=== PATIENT | female | born 1950 | race African-American/Black ===

== ENCOUNTER 2020-08-08 17:45 | Emergency (ER) | payer MEDICARE, MEDICAID ==
[~2020-08-08] VITALS: Ht 167.6 cm; Wt 68.9 kg
[2020-08-08 19:18] LABS: Basophils # (auto) 0 10 ^3/uL (0-0.2); Basophils % (auto) 0.7 % (0.0-2.0); Eosinophils # (auto) 0 10 ^3/uL (0-0.8); Hematocrit 38.6 % (36.0-46.0); Hemoglobin 13.3 g/dL (12.2-16.2); Lymphocytes # (auto) 1.4 10 ^3/uL (0.4-5.4); Lymphocytes % (auto) 27.5 % (10.0-50.0); Mean Corpuscular Hemoglobin 32.7 pg (28.0-32.0); Mean Corpuscular Hgb Conc. 34.4 g/dL (32.0-36.0); Mean Corpuscular Volume 95.1 fL (80.0-100.0); Monocytes # (auto) 0.4 10 ^3/uL (0-1.3); Monocytes % (auto) 6.8 % (0.0-12.0); Neutrophils # (auto) 3.3 10 ^3/uL (1.6-8.6); Nucleated Red Blood Cells % 0.1 %; Platelet Count (auto) 216 10^3/uL (140-450); Red Blood Cells 4.06 10^6/uL (4.0-5.20); Red Cell Distribution Width 13.4 % (11.8-14.3); White Blood Cell 5.2 10^3/uL (4.4-10.8)
[2020-08-08 19:32] LABS: Albumin 3.5 g/dL (3.4-5.0); Anion Gap 7 (5-15); Blood Urea Nitrogen 16 mg/dL (7-18); Carbon Dioxide 25 mmol/L (21-32); Chloride 107 mmol/L (98-107); Glucose 134 mg/dL (74-106); Magnesium 2.4 mg/dL (1.6-2.6); Potassium 3.9 mmol/L (3.5-5.1); Sodium 139 mmol/L (136-145)
[2020-08-08 19:38] LABS: Alanine Aminotransferase 26 U/L (13-56); Alkaline Phosphatase 102 U/L (45-117); Aspartate Aminotransferase 20 U/L (15-37); BUN/Creatinine Ratio 17.4; Bilirubin, Total 0.2 mg/dL (0.2-1.0); GFR African American 78 mL/min; GFR Non-African American 64 mL/min; Total Protein 7.5 g/dL (6.4-8.2)
[2020-08-09 06:20] VITALS: BP 135/68
== END 2020-08-09 07:28 | disposition home or self-care (01) ==
LOC: ER 17:45 → EDBD 17:45 → ER 08-09 07:28
DX: G25.0 Essential tremor (principal); T42.6X5A Adverse effect of other antiepileptic and sedative-hypnotic drugs, initial encounter; M25.551 Pain in right hip; M25.552 Pain in left hip; M79.7 Fibromyalgia; Z86.73 Personal history of transient ischemic attack (TIA), and cerebral infarction without residual deficits; Z88.1 Allergy status to other antibiotic agents; Z91.040 Latex allergy status; Z88.0 Allergy status to penicillin; Z88.2 Allergy status to sulfonamides; Z88.8 Allergy status to other drugs, medicaments and biological substances; Y92.89 Other specified places as the place of occurrence of the external cause
CPT/HCPCS: 36415; 70450; 71045; 80053; 83605; 83735; 83880; 84484; 85025; 93005

== ENCOUNTER 2021-02-20 14:00 | Inpatient (IN) | payer MEDICARE, MEDICAID ==
[~2021-02-20] VITALS: Ht 162.6 cm; Wt 72.3 kg
[2021-02-20] MEDS ORDERED: cloNIDine HCL 0.1 MG TAB PO ONE (14:15)
[2021-02-20] MEDS ORDERED: cloNIDine HCL 0.1 MG TAB ONE (14:20)
[2021-02-20 14:49] LABS: Basophils # (auto) 0 10 ^3/uL (0-0.2); Basophils % (auto) 0.6 % (0.0-2.0); Eosinophils # (auto) 0 10 ^3/uL (0-0.8); Eosinophils % (auto) 0.1 % (0.0-7.0); Hematocrit 45.3 % (36.0-46.0); Hemoglobin 15.5 g/dL (12.2-16.2); Lymphocytes # (auto) 2.1 10 ^3/uL (0.4-5.4); Lymphocytes % (auto) 28.3 % (10.0-50.0); Mean Corpuscular Hemoglobin 32.2 pg (28.0-32.0); Mean Corpuscular Hgb Conc. 34.2 g/dL (32.0-36.0); Mean Corpuscular Volume 94.3 fL (80.0-100.0); Monocytes # (auto) 0.6 10 ^3/uL (0-1.3); Monocytes % (auto) 8.6 % (0.0-12.0); Neutrophils # (auto) 4.7 10 ^3/uL (1.6-8.6); Neutrophils % (auto) 62.4 % (37.0-80.0); Red Blood Cells 4.81 10^6/uL (4.0-5.20); Red Cell Distribution Width 13.4 % (11.8-14.3); White Blood Cell 7.5 10^3/uL (4.4-10.8)
[2021-02-20 15:17] LABS: Alanine Aminotransferase 27 U/L (13-56); Albumin 3.7 g/dL (3.4-5.0); Anion Gap 13 (5-15); Aspartate Aminotransferase 31 U/L (15-37); Blood Urea Nitrogen 15 mg/dL (7-18); Calcium 9.2 mg/dL (8.5-10.1); Carbon Dioxide 24 mmol/L (21-32); Chloride 104 mmol/L (98-107); GFR African American 98 mL/min; GFR Non-African American 81 mL/min; Glucose 103 mg/dL (74-106); Potassium 3.8 mmol/L (3.5-5.1); Sodium 141 mmol/L (136-145)
[2021-02-20 15:20] LABS: Alkaline Phosphatase 113 U/L (45-117); Bilirubin, Total 0.6 mg/dL (0.2-1.0)
[2021-02-20] MEDS ORDERED: MORPHINE SULFATE INJECTION 2 MG/ML SYRG IV PRN (23:45)
[2021-02-21 01:42] LABS: Amphetamine Screen, Urine NEGATIVE (NEGATIVE); Barbiturate Scree,Urine NEGATIVE (NEGATIVE); Benzodiazephine Screen, Urine NEGATIVE (NEGATIVE); Cannabinoid Screen, Urine NEGATIVE (NEGATIVE); Cocaine Screen, Urine NEGATIVE (NEGATIVE); Opiate Scree,Urine POSITIVE (NEGATIVE); Phencyclidine Screen, Urine NEGATIVE (NEGATIVE)
[2021-02-21 01:44] LABS: Urine Bacteria NONE SEEN /hpf (None Seen); Urine Blood Negative /uL (Negative); Urine Hyaline Cast FEW /lpf (0 - 2); Urine Mucus FEW (None Seen); Urine Specific Gravity 1.018 (1.001-1.035); Urine WBC 131 /hpf (0 - 5)
[2021-02-21] MEDS: SODIUM CHLORIDE 0.9% 1,000 ML IV SCH ×2 (04:55→18:35)
[2021-02-21] MEDS ORDERED: LORazepam 2MG/ML-1ML VIAL ONE (05:09)
[2021-02-21] MEDS ORDERED: HALOPERIDOL LACTATE 5 MG/ML INJ VIAL ONE ×2 (05:10)
[2021-02-21] MEDS ORDERED: LORazepam 2MG/ML-1ML VIAL IV ONE ×2 (05:15→05:30)
[2021-02-21] MEDS ORDERED: HALOPERIDOL LACTATE 5 MG/ML INJ VIAL IM ONE (05:30)
[2021-02-21 10:19] LABS: Basophils # (auto) 0 10 ^3/uL (0-0.2); Basophils % (auto) 0.5 % (0.0-2.0); Eosinophils # (auto) 0 10 ^3/uL (0-0.8); Eosinophils % (auto) 0.1 % (0.0-7.0); Hematocrit 40.6 % (36.0-46.0); Hemoglobin 13.5 g/dL (12.2-16.2); Lymphocytes # (auto) 2.8 10 ^3/uL (0.4-5.4); Lymphocytes % (auto) 29.9 % (10.0-50.0); Mean Corpuscular Hemoglobin 31.2 pg (28.0-32.0); Mean Corpuscular Hgb Conc. 33.2 g/dL (32.0-36.0); Mean Corpuscular Volume 93.9 fL (80.0-100.0); Monocytes # (auto) 1.1 10 ^3/uL (0-1.3); Monocytes % (auto) 12.3 % (0.0-12.0); Neutrophils # (auto) 5.3 10 ^3/uL (1.6-8.6); Neutrophils % (auto) 57.2 % (37.0-80.0); Nucleated Red Blood Cells % 0.1 %; Red Blood Cells 4.33 10^6/uL (4.0-5.20); Red Cell Distribution Width 13.2 % (11.8-14.3); White Blood Cell 9.3 10^3/uL (4.4-10.8)
[2021-02-21 10:58] LABS: Calcium 8.3 mg/dL (8.5-10.1)
[2021-02-21] MEDS: ENOXAPARIN SOD 40 MG/0.4 ML SYRINGE SC SCH (11:00)
[2021-02-21] MEDS: ZINC SULFATE 220mg CAP or TAB PO SCH (11:00)
[2021-02-21 11:02] LABS: BUN/Creatinine Ratio 29.1; Bilirubin, Total 0.5 mg/dL (0.2-1.0); Total Protein 6.7 g/dL (6.4-8.2)
[2021-02-21] MEDS: MULTIPLE VITAMIN TAB PO SCH (11:16)
[2021-02-21] MEDS: ASCORBIC ACID 500 MG TAB PO SCH ×2 (11:16→21:44)
[2021-02-21] MEDS: MORPHINE SULFATE 4 MG/ML SYR/VIAL IV PRN (15:45)
[2021-02-21] MEDS: ONDANSETRON HCL 4 MG/2 ML VIAL IV PRN (15:50)
[2021-02-21] MEDS ORDERED: levoFLOXacin 500MG 100 ML IV ONE (16:00)
[2021-02-21 18:38] VITALS: BP 124/67
[2021-02-21 22:25] VITALS: BP 118/68
[2021-02-22] VITALS (7 sets, daily range): BP systolic 120–138; BP diastolic 61–76
[2021-02-22] MEDS: ONDANSETRON HCL 4 MG/2 ML VIAL IV PRN (08:23)
[2021-02-22] MEDS: MORPHINE SULFATE 4 MG/ML SYR/VIAL IV PRN ×2 (08:27→22:10)
[2021-02-22] MEDS: ENOXAPARIN SOD 40 MG/0.4 ML SYRINGE SC SCH (10:56)
[2021-02-22] MEDS: HYDROcodone-ACET 5/325MG TAB PO PRN (10:56)
[2021-02-22] MEDS: MULTIPLE VITAMIN TAB PO SCH (10:56)
[2021-02-22] MEDS: DOCUSATE SOD 100 MG CAP PO PRN (10:56)
[2021-02-22] MEDS: ASCORBIC ACID 500 MG TAB PO SCH ×2 (10:56→22:09)
[2021-02-22] MEDS: SODIUM CHLORIDE 0.9% 1,000 ML IV SCH (10:57)
[2021-02-22] MEDS: levoFLOXacin 500MG 100 ML IV SCH (10:57)
[2021-02-22] MEDS: ZINC SULFATE 220mg CAP or TAB PO SCH (10:57)
[2021-02-22] MEDS ORDERED: POTASSIUM CHL 20 Meq TABLET PO ONE (19:45)
[2021-02-22] MEDS: ATORVASTATIN 20 MG TAB PO SCH (22:09)
[2021-02-22] MEDS: APIXABAN 5 MG TAB PO SCH (22:09)
[2021-02-23] VITALS (7 sets, daily range): BP systolic 122–136; BP diastolic 73–81
[2021-02-23] MEDS: SODIUM CHLORIDE 0.9% 1,000 ML IV SCH ×2 (01:32→18:01)
[2021-02-23 06:46] LABS: Basophils # (auto) 0 10 ^3/uL (0-0.2); Basophils % (auto) 0.8 % (0.0-2.0); Eosinophils # (auto) 0 10 ^3/uL (0-0.8); Eosinophils % (auto) 0.6 % (0.0-7.0); Hematocrit 38.8 % (36.0-46.0); Hemoglobin 12.7 g/dL (12.2-16.2); Lymphocytes # (auto) 2.2 10 ^3/uL (0.4-5.4); Mean Corpuscular Hemoglobin 30.8 pg (28.0-32.0); Mean Corpuscular Hgb Conc. 32.7 g/dL (32.0-36.0); Mean Corpuscular Volume 94.2 fL (80.0-100.0); Monocytes # (auto) 0.6 10 ^3/uL (0-1.3); Monocytes % (auto) 10.7 % (0.0-12.0); Neutrophils # (auto) 2.4 10 ^3/uL (1.6-8.6); Neutrophils % (auto) 45.9 % (37.0-80.0); Nucleated Red Blood Cells % 0.2 %; Red Blood Cells 4.12 10^6/uL (4.0-5.20); Red Cell Distribution Width 13.1 % (11.8-14.3); White Blood Cell 5.3 10^3/uL (4.4-10.8)
[2021-02-23 06:54] LABS: Potassium 3.7 mmol/L (3.5-5.1)
[2021-02-23 07:15] LABS: Albumin 2.7 g/dL (3.4-5.0); BUN/Creatinine Ratio 13.9; Bilirubin, Total 0.3 mg/dL (0.2-1.0); Total Protein 5.6 g/dL (6.4-8.2)
[2021-02-23] MEDS: APIXABAN 5 MG TAB PO SCH ×2 (10:06→22:05)
[2021-02-23] MEDS: levoFLOXacin 500MG 100 ML IV SCH (10:06)
[2021-02-23] MEDS: ZINC SULFATE 220mg CAP or TAB PO SCH (10:06)
[2021-02-23] MEDS: MULTIPLE VITAMIN TAB PO SCH (10:06)
[2021-02-23] MEDS: HYDROcodone-ACET 5/325MG TAB PO PRN ×2 (10:07→22:06)
[2021-02-23] MEDS: ASCORBIC ACID 500 MG TAB PO SCH ×2 (10:07→22:05)
[2021-02-23] MEDS: DOCUSATE SOD 100 MG CAP PO PRN (18:44)
[2021-02-23] MEDS: ATORVASTATIN 20 MG TAB PO SCH (22:05)
[2021-02-24] VITALS (7 sets, daily range): BP systolic 124–165; BP diastolic 72–82
[2021-02-24] MEDS: MORPHINE SULFATE 4 MG/ML SYR/VIAL IV PRN ×3 (00:28→21:37)
[2021-02-24] MEDS: traZODone HCL 50 MG TAB PO SCH ×2 (01:56→21:34)
[2021-02-24] MEDS: diphenhdrAMINE HCL 25 MG CAP PO PRN (02:00)
[2021-02-24 05:16] LABS: Basophils # (auto) 0 10 ^3/uL (0-0.2); Basophils % (auto) 0.9 % (0.0-2.0); Eosinophils # (auto) 0 10 ^3/uL (0-0.8); Eosinophils % (auto) 0.8 % (0.0-7.0); Hematocrit 39.8 % (36.0-46.0); Hemoglobin 12.9 g/dL (12.2-16.2); Lymphocytes # (auto) 2.7 10 ^3/uL (0.4-5.4); Lymphocytes % (auto) 50.2 % (10.0-50.0); Mean Corpuscular Hemoglobin 30.2 pg (28.0-32.0); Mean Corpuscular Hgb Conc. 32.3 g/dL (32.0-36.0); Mean Corpuscular Volume 93.5 fL (80.0-100.0); Monocytes # (auto) 0.5 10 ^3/uL (0-1.3); Monocytes % (auto) 8.5 % (0.0-12.0); Neutrophils # (auto) 2.2 10 ^3/uL (1.6-8.6); Neutrophils % (auto) 39.6 % (37.0-80.0); Nucleated Red Blood Cells % 0.2 %; Red Blood Cells 4.25 10^6/uL (4.0-5.20); Red Cell Distribution Width 13.1 % (11.8-14.3); White Blood Cell 5.5 10^3/uL (4.4-10.8)
[2021-02-24 05:34] LABS: Albumin 2.7 g/dL (3.4-5.0); BUN/Creatinine Ratio 10.1; Calcium 8.6 mg/dL (8.5-10.1); Potassium 3.3 mmol/L (3.5-5.1)
[2021-02-24 05:42] LABS: Bilirubin, Total 0.3 mg/dL (0.2-1.0); Total Protein 5.7 g/dL (6.4-8.2)
[2021-02-24] MEDS: LEVOTHYROXINE SODIUM 50 MCG TAB PO SCH (06:34)
[2021-02-24] MEDS: ZINC SULFATE 220mg CAP or TAB PO SCH (09:48)
[2021-02-24] MEDS: MULTIPLE VITAMIN TAB PO SCH (09:48)
[2021-02-24] MEDS: levoFLOXacin 500MG 100 ML IV SCH (09:48)
[2021-02-24] MEDS: ASCORBIC ACID 500 MG TAB PO SCH ×2 (09:48→21:34)
[2021-02-24] MEDS: APIXABAN 5 MG TAB PO SCH ×2 (09:48→21:35)
[2021-02-24] MEDS: SODIUM CHLORIDE 0.9% 1,000 ML IV SCH (10:42)
[2021-02-24] MEDS: DOCUSATE SOD 100 MG CAP PO PRN (14:35)
[2021-02-24] MEDS: HYDROcodone-ACET 5/325MG TAB PO PRN (17:42)
[2021-02-24] MEDS ORDERED: LACTULOSE 20Gm/30ML SOLN PO ONE (18:45)
[2021-02-24] MEDS ORDERED: POTASSIUM CHL 20 Meq TABLET PO ONE (18:45)
[2021-02-24] MEDS: ATORVASTATIN 20 MG TAB PO SCH (21:34)
[2021-02-24] MEDS: ACETAMINOPHEN 325 MG TAB PO PRN (21:35)
[2021-02-25] MEDS ORDERED: hydrALAZINE HCL 20 MG/ML VL IV PRN (02:00)
[2021-02-25] MEDS: HYDROcodone-ACET 5/325MG TAB PO PRN ×2 (02:09→11:27)
[2021-02-25] MEDS: SODIUM CHLORIDE 0.9% 1,000 ML IV SCH ×2 (02:09→18:08)
[2021-02-25] MEDS: diphenhdrAMINE HCL 25 MG CAP PO PRN ×2 (02:10→11:26)
[2021-02-25 05:00] VITALS: BP 141/79
[2021-02-25] MEDS: LEVOTHYROXINE SODIUM 50 MCG TAB PO SCH (06:10)
[2021-02-25 06:40] LABS: Basophils # (auto) 0 10 ^3/uL (0-0.2); Basophils % (auto) 0.4 % (0.0-2.0); Eosinophils # (auto) 0.2 10 ^3/uL (0-0.8); Hematocrit 37.5 % (36.0-46.0); Hemoglobin 12.1 g/dL (12.2-16.2); Lymphocytes # (auto) 3.3 10 ^3/uL (0.4-5.4); Lymphocytes % (auto) 53.1 % (10.0-50.0); Mean Corpuscular Hemoglobin 30.4 pg (28.0-32.0); Mean Corpuscular Hgb Conc. 32.3 g/dL (32.0-36.0); Mean Corpuscular Volume 93.9 fL (80.0-100.0); Monocytes # (auto) 0.5 10 ^3/uL (0-1.3); Monocytes % (auto) 7.8 % (0.0-12.0); Neutrophils # (auto) 2.2 10 ^3/uL (1.6-8.6); Neutrophils % (auto) 35.7 % (37.0-80.0); Nucleated Red Blood Cells % 0.1 %; Red Blood Cells 3.99 10^6/uL (4.0-5.20); Red Cell Distribution Width 13.1 % (11.8-14.3); White Blood Cell 6.3 10^3/uL (4.4-10.8)
[2021-02-25 07:08] LABS: Potassium 3.5 mmol/L (3.5-5.1)
[2021-02-25 07:14] LABS: Albumin 2.6 g/dL (3.4-5.0); Calcium 8.3 mg/dL (8.5-10.1)
[2021-02-25 07:17] LABS: Bilirubin, Total 0.2 mg/dL (0.2-1.0); Total Protein 5.5 g/dL (6.4-8.2)
[2021-02-25 08:37] VITALS: BP 138/82
[2021-02-25] MEDS: levoFLOXacin 500MG 100 ML IV SCH (09:35)
[2021-02-25] MEDS: ASCORBIC ACID 500 MG TAB PO SCH ×2 (09:35→22:20)
[2021-02-25] MEDS: MULTIPLE VITAMIN TAB PO SCH (09:35)
[2021-02-25] MEDS: APIXABAN 5 MG TAB PO SCH ×2 (09:35→22:20)
[2021-02-25] MEDS: ZINC SULFATE 220mg CAP or TAB PO SCH (09:35)
[2021-02-25 13:00] VITALS: BP 135/81
[2021-02-25] MEDS: MORPHINE SULFATE 4 MG/ML SYR/VIAL IV PRN ×2 (16:16→20:22)
[2021-02-25 16:48] VITALS: BP 126/69
[2021-02-25] MEDS: PHENAZOPYRIDINE HCL 100 MG TAB PO SCH (19:36)
[2021-02-25 20:53] LABS: Urine Bacteria FEW /hpf (None Seen); Urine Blood Negative /uL (Negative); Urine Specific Gravity 1.007 (1.001-1.035); Urine WBC <1 /hpf (0 - 5)
[2021-02-25] MEDS: ACETAMINOPHEN 325 MG TAB PO PRN (20:56)
[2021-02-25 22:00] VITALS: BP 163/81
[2021-02-25] MEDS: traZODone HCL 50 MG TAB PO SCH (22:20)
[2021-02-25] MEDS: ATORVASTATIN 20 MG TAB PO SCH (22:20)
[2021-02-25 23:00] VITALS: BP 155/84
[2021-02-26] MEDS: MORPHINE SULFATE 4 MG/ML SYR/VIAL IV PRN ×4 (01:04→21:10)
[2021-02-26 05:00] VITALS: BP 143/72
[2021-02-26 05:43] LABS: Basophils # (auto) 0.1 10 ^3/uL (0-0.2); Eosinophils # (auto) 0.2 10 ^3/uL (0-0.8); Eosinophils % (auto) 3.7 % (0.0-7.0); Hematocrit 34.9 % (36.0-46.0); Lymphocytes % (auto) 50.6 % (10.0-50.0); Mean Corpuscular Hgb Conc. 34.3 g/dL (32.0-36.0); Mean Corpuscular Volume 93.2 fL (80.0-100.0); Monocytes # (auto) 0.6 10 ^3/uL (0-1.3); Monocytes % (auto) 9.5 % (0.0-12.0); Neutrophils # (auto) 2.1 10 ^3/uL (1.6-8.6); Neutrophils % (auto) 35.2 % (37.0-80.0); Nucleated Red Blood Cells % 0.2 %; Red Blood Cells 3.75 10^6/uL (4.0-5.20); Red Cell Distribution Width 13.5 % (11.8-14.3)
[2021-02-26 06:02] LABS: Potassium 3.5 mmol/L (3.5-5.1)
[2021-02-26 06:06] LABS: Albumin 2.6 g/dL (3.4-5.0); BUN/Creatinine Ratio 10.4; Calcium 8.6 mg/dL (8.5-10.1)
[2021-02-26 06:12] LABS: Bilirubin, Total 0.2 mg/dL (0.2-1.0); Total Protein 5.4 g/dL (6.4-8.2)
[2021-02-26] MEDS: LEVOTHYROXINE SODIUM 50 MCG TAB PO SCH (06:42)
[2021-02-26] MEDS: PHENAZOPYRIDINE HCL 100 MG TAB PO SCH ×3 (08:19→18:09)
[2021-02-26] MEDS: HYDROcodone-ACET 5/325MG TAB PO PRN ×4 (08:21→22:54)
[2021-02-26] MEDS: ASCORBIC ACID 500 MG TAB PO SCH ×2 (08:21→22:52)
[2021-02-26] MEDS: diphenhdrAMINE HCL 25 MG CAP PO PRN ×2 (08:21→18:09)
[2021-02-26] MEDS: APIXABAN 5 MG TAB PO SCH ×2 (08:21→22:52)
[2021-02-26] MEDS: ZINC SULFATE 220mg CAP or TAB PO SCH (08:21)
[2021-02-26] MEDS: MULTIPLE VITAMIN TAB PO SCH (08:21)
[2021-02-26 09:00] VITALS: BP 133/66
[2021-02-26] MEDS: levoFLOXacin 500MG 100 ML IV SCH (10:28)
[2021-02-26 13:05] VITALS: BP 125/66
[2021-02-26 17:00] VITALS: BP 130/61
[2021-02-26 22:00] VITALS: BP 152/76
[2021-02-26] MEDS: traZODone HCL 50 MG TAB PO SCH (22:52)
[2021-02-26] MEDS: ATORVASTATIN 20 MG TAB PO SCH (22:52)
[2021-02-26] MEDS: DOCUSATE SOD 100 MG CAP PO SCH (22:53)
[2021-02-27] MEDS: HYDROmorphone HCL 2 MG/ML VL IV PRN ×4 (00:41→21:36)
[2021-02-27] MEDS: BACLOFEN 10 MG TAB PO PRN ×2 (00:41→12:31)
[2021-02-27 05:00] VITALS: BP 114/53
[2021-02-27 05:57] LABS: Basophils # (auto) 0.1 10 ^3/uL (0-0.2); Basophils % (auto) 1.1 % (0.0-2.0); Eosinophils # (auto) 0.2 10 ^3/uL (0-0.8); Hematocrit 35.6 % (36.0-46.0); Lymphocytes % (auto) 53.8 % (10.0-50.0); Mean Corpuscular Hemoglobin 31.6 pg (28.0-32.0); Mean Corpuscular Hgb Conc. 33.8 g/dL (32.0-36.0); Mean Corpuscular Volume 93.6 fL (80.0-100.0); Monocytes # (auto) 0.5 10 ^3/uL (0-1.3); Monocytes % (auto) 8.9 % (0.0-12.0); Neutrophils # (auto) 1.9 10 ^3/uL (1.6-8.6); Neutrophils % (auto) 33.2 % (37.0-80.0); Nucleated Red Blood Cells % 0.1 %; Red Cell Distribution Width 13.1 % (11.8-14.3); White Blood Cell 5.6 10^3/uL (4.4-10.8)
[2021-02-27 06:20] LABS: Calcium 8.4 mg/dL (8.5-10.1); Potassium 3.6 mmol/L (3.5-5.1)
[2021-02-27 06:23] LABS: Albumin 2.6 g/dL (3.4-5.0); BUN/Creatinine Ratio 15.9
[2021-02-27 06:26] LABS: Bilirubin, Total 0.2 mg/dL (0.2-1.0); Total Protein 5.3 g/dL (6.4-8.2)
[2021-02-27] MEDS: LEVOTHYROXINE SODIUM 50 MCG TAB PO SCH (07:35)
[2021-02-27] MEDS: PHENAZOPYRIDINE HCL 100 MG TAB PO SCH ×2 (07:59→12:15)
[2021-02-27 08:00] VITALS: BP 145/69
[2021-02-27] MEDS: APIXABAN 5 MG TAB PO SCH ×2 (10:28→21:34)
[2021-02-27] MEDS: ZINC SULFATE 220mg CAP or TAB PO SCH (10:28)
[2021-02-27] MEDS: MULTIPLE VITAMIN TAB PO SCH (10:28)
[2021-02-27] MEDS: ASCORBIC ACID 500 MG TAB PO SCH ×2 (10:28→21:34)
[2021-02-27] MEDS: levoFLOXacin 500MG 100 ML IV SCH (10:29)
[2021-02-27] MEDS: DOCUSATE SOD 100 MG CAP PO SCH ×2 (10:37→21:33)
[2021-02-27 16:00] VITALS: BP 155/80
[2021-02-27 21:25] VITALS: BP 144/84
[2021-02-27] MEDS: traZODone HCL 50 MG TAB PO SCH (21:33)
[2021-02-27] MEDS: ATORVASTATIN 20 MG TAB PO SCH (21:34)
[2021-02-28 05:41] VITALS: BP 120/67
[2021-02-28] MEDS: LEVOTHYROXINE SODIUM 50 MCG TAB PO SCH (06:37)
[2021-02-28 08:00] VITALS: BP 140/71
[2021-02-28] MEDS: NITROGLYCERIN 0.4 MG SL TAB SL PRN ×2 (08:22→08:50)
[2021-02-28] MEDS: APIXABAN 5 MG TAB PO SCH ×2 (10:00→22:08)
[2021-02-28] MEDS: ASCORBIC ACID 500 MG TAB PO SCH ×2 (10:00→22:07)
[2021-02-28] MEDS: DOCUSATE SOD 100 MG CAP PO SCH ×2 (10:00→22:06)
[2021-02-28] MEDS: ZINC SULFATE 220mg CAP or TAB PO SCH (10:00)
[2021-02-28] MEDS: MULTIPLE VITAMIN TAB PO SCH (10:00)
[2021-02-28] MEDS: levoFLOXacin 500MG 100 ML IV SCH (10:00)
[2021-02-28 12:00] VITALS: BP 147/79
[2021-02-28] MEDS: HYDROcodone-ACET 5/325MG TAB PO PRN (15:28)
[2021-02-28 16:00] VITALS: BP 148/72
[2021-02-28] MEDS: HYDROmorphone HCL 2 MG/ML VL IV PRN (22:06)
[2021-02-28] MEDS: traZODone HCL 50 MG TAB PO SCH (22:07)
[2021-02-28] MEDS: ATORVASTATIN 20 MG TAB PO SCH (22:07)
[2021-02-28 22:09] VITALS: BP 133/72
[2021-03-01] MEDS: LEVOTHYROXINE SODIUM 50 MCG TAB PO SCH (06:14)
[2021-03-01] MEDS: HYDROmorphone HCL 2 MG/ML VL IV PRN ×2 (06:15→17:48)
[2021-03-01 09:00] VITALS: BP 129/63
[2021-03-01] MEDS: MULTIPLE VITAMIN TAB PO SCH (10:00)
[2021-03-01] MEDS: levoFLOXacin 500MG 100 ML IV SCH (10:00)
[2021-03-01] MEDS: ASCORBIC ACID 500 MG TAB PO SCH ×2 (10:00→21:56)
[2021-03-01] MEDS: DOCUSATE SOD 100 MG CAP PO SCH ×2 (10:00→21:55)
[2021-03-01] MEDS: APIXABAN 5 MG TAB PO SCH ×2 (10:00→21:56)
[2021-03-01] MEDS: ZINC SULFATE 220mg CAP or TAB PO SCH (10:00)
[2021-03-01] MEDS: ACETAMINOPHEN 325 MG TAB PO PRN ×2 (11:34→12:31)
[2021-03-01 13:00] VITALS: BP 136/68
[2021-03-01 16:53] VITALS: BP 142/76
[2021-03-01] MEDS: ATORVASTATIN 20 MG TAB PO SCH (21:56)
[2021-03-01] MEDS: traZODone HCL 50 MG TAB PO SCH (21:56)
[2021-03-01 22:00] VITALS: BP 167/70
[2021-03-01] MEDS: HYDROcodone-ACET 5/325MG TAB PO PRN (22:07)
[2021-03-02 05:00] VITALS: BP 132/66
[2021-03-02] MEDS: LEVOTHYROXINE SODIUM 50 MCG TAB PO SCH (06:35)
[2021-03-02 09:00] VITALS: BP 138/78
[2021-03-02 09:10] VITALS: BP 141/66
[2021-03-02] MEDS: HYDROcodone-ACET 5/325MG TAB PO PRN (09:13)
[2021-03-02] MEDS: DOCUSATE SOD 100 MG CAP PO SCH (09:14)
[2021-03-02] MEDS: levoFLOXacin 500MG 100 ML IV SCH (09:14)
[2021-03-02] MEDS: ZINC SULFATE 220mg CAP or TAB PO SCH (09:14)
[2021-03-02] MEDS: ASCORBIC ACID 500 MG TAB PO SCH (09:15)
[2021-03-02] MEDS: APIXABAN 5 MG TAB PO SCH (09:15)
[2021-03-02] MEDS: MULTIPLE VITAMIN TAB PO SCH (09:15)
[2021-03-02 11:00] VITALS: BP 118/75
[2021-03-02 13:00] VITALS: BP 127/70
[2021-03-02 15:48] VITALS: BP 127/70
== END 2021-03-02 16:20 | disposition home health service (06) | DRG 71 ==
LOC: ER 14:00 → EDBD 14:00 → TELE 23:32 → TELE-WESTW 02-21 16:15
PROVIDERS: ADMIT Internal Medicine; ATTEND Internal Medicine
PROC: 05HC33Z Insertion of Infusion Device into Left Basilic Vein, Percutaneous Approach (ICD-10-PCS; principal; 2021-02-22)
PROC: B54NZZA Ultrasonography of Left Upper Extremity Veins, Guidance (ICD-10-PCS; 2021-02-22)
DX: G93.41 Metabolic encephalopathy (principal); N39.0 Urinary tract infection, site not specified; E11.9 Type 2 diabetes mellitus without complications; I48.91 Unspecified atrial fibrillation; M35.00 Sjogren syndrome, unspecified; I11.0 Hypertensive heart disease with heart failure; I50.9 Heart failure, unspecified; M79.7 Fibromyalgia; K90.0 Celiac disease; E06.3 Autoimmune thyroiditis; G40.909 Epilepsy, unspecified, not intractable, without status epilepticus; Z20.822 Contact with and (suspected) exposure to COVID-19; R33.9 Retention of urine, unspecified; N20.0 Calculus of kidney; Z79.82 Long term (current) use of aspirin; Z79.899 Other long term (current) drug therapy; Z86.73 Personal history of transient ischemic attack (TIA), and cerebral infarction without residual deficits; Z90.710 Acquired absence of both cervix and uterus; Z88.0 Allergy status to penicillin; Z88.2 Allergy status to sulfonamides; Z88.8 Allergy status to other drugs, medicaments and biological substances; Z88.1 Allergy status to other antibiotic agents; Z91.040 Latex allergy status
CPT/HCPCS: 36415; 70450; 70551; 74176; 80053; 80307; 81001; 84484; 85025; 87070; 87086; 87088; 87186; 87426; 93005; 95819; 96365; 96372; 96375; 97110; 97116; 97163; 97530; G0378; J1956; J2405

== ENCOUNTER → 2021-06-23 | Emergency (ER) | payer MEDICARE, MEDICAID ==
[~2021-06-23] VITALS: Ht 167.6 cm; Wt 68.0 kg
[~2021-06-23] MED LIST: MORPHINE SULFATE INJECTION 2 MG/ML SYRG IV ONE; ONDANSETRON HCL 4 MG/2 ML VIAL IV ONE; SODIUM CHLORIDE 0.9% 1,000 ML IV ONE; cefTRIAXone SOD 1,000 MG VL ONE; cloNIDine HCL 0.1 MG TAB PO ONE
[2021-06-23 11:26] LABS: Basophils # (auto) 0 10 ^3/uL (0-0.2); Basophils % (auto) 0.6 % (0.0-2.0); Eosinophils # (auto) 0 10 ^3/uL (0-0.8); Hematocrit 40.9 % (36.0-46.0); Hemoglobin 13.7 g/dL (12.2-16.2); Lymphocytes # (auto) 1.6 10 ^3/uL (0.4-5.4); Lymphocytes % (auto) 22.5 % (10.0-50.0); Mean Corpuscular Hemoglobin 31.6 pg (28.0-32.0); Mean Corpuscular Hgb Conc. 33.5 g/dL (32.0-36.0); Mean Corpuscular Volume 94.3 fL (80.0-100.0); Monocytes # (auto) 0.4 10 ^3/uL (0-1.3); Monocytes % (auto) 6.3 % (0.0-12.0); Neutrophils # (auto) 4.9 10 ^3/uL (1.6-8.6); Neutrophils % (auto) 70.6 % (37.0-80.0); Red Blood Cells 4.34 10^6/uL (4.0-5.20); Red Cell Distribution Width 13.5 % (11.8-14.3)
[2021-06-23 11:36] LABS: Albumin 3.5 g/dL (3.4-5.0); Calcium 9.1 mg/dL (8.5-10.1); Potassium 3.6 mmol/L (3.5-5.1)
[2021-06-23 11:38] LABS: Bilirubin, Total 0.2 mg/dL (0.2-1.0); Total Protein 7.8 g/dL (6.4-8.2)
[2021-06-23 14:20] LABS: Urine Bacteria NONE SEEN /hpf (None Seen); Urine Blood Negative /uL (Negative); Urine Mucus FEW (None Seen); Urine WBC 8 /hpf (0 - 5)
[2021-06-23 16:42] VITALS: BP 170/84
== END | disposition home or self-care (01) ==
LOC: EDUNIT# 09:57 → EDBD 10:05 → ER 10:05
DX: M35.2 Behcet's disease (principal); R53.1 Weakness; M79.10 Myalgia, unspecified site; E11.9 Type 2 diabetes mellitus without complications; E03.9 Hypothyroidism, unspecified; I50.9 Heart failure, unspecified; Z86.73 Personal history of transient ischemic attack (TIA), and cerebral infarction without residual deficits; Z90.710 Acquired absence of both cervix and uterus; Z88.1 Allergy status to other antibiotic agents; Z88.0 Allergy status to penicillin; Z88.2 Allergy status to sulfonamides; Z88.8 Allergy status to other drugs, medicaments and biological substances
CPT/HCPCS: 36415; 70450; 71046; 80053; 81001; 83735; 84443; 84484; 85025; 93005; 96361; 96374; 96375; 99285; J2270; J2405; J7030

== ENCOUNTER 2021-06-24 | Emergency (ER) | payer MEDICARE, MEDICAID ==
[~2021-06-24] VITALS: Ht 167.6 cm; Wt 62.1 kg
[2021-06-24] MEDS ORDERED: cefTRIAXone W LIDOCAINE 1 GM IM IM ONE (00:15)
[2021-06-24 03:54] LABS: Basophils # (auto) 0.1 10 ^3/uL (0-0.2); Basophils % (auto) 1.3 % (0.0-2.0); Eosinophils # (auto) 0 10 ^3/uL (0-0.8); Eosinophils % (auto) 0.3 % (0.0-7.0); Hematocrit 42.4 % (36.0-46.0); Hemoglobin 14.1 g/dL (12.2-16.2); Lymphocytes # (auto) 3.4 10 ^3/uL (0.4-5.4); Lymphocytes % (auto) 35.6 % (10.0-50.0); Mean Corpuscular Hgb Conc. 33.3 g/dL (32.0-36.0); Mean Corpuscular Volume 96.1 fL (80.0-100.0); Monocytes # (auto) 0.7 10 ^3/uL (0-1.3); Monocytes % (auto) 6.9 % (0.0-12.0); Neutrophils # (auto) 5.3 10 ^3/uL (1.6-8.6); Neutrophils % (auto) 55.9 % (37.0-80.0); Nucleated Red Blood Cells % 0.2 %; Red Blood Cells 4.41 10^6/uL (4.0-5.20); Red Cell Distribution Width 13.7 % (11.8-14.3); White Blood Cell 9.5 10^3/uL (4.4-10.8)
[2021-06-24 04:13] LABS: Albumin 3.8 g/dL (3.4-5.0); BUN/Creatinine Ratio 19.4; Calcium 9.7 mg/dL (8.5-10.1); Potassium 3.6 mmol/L (3.5-5.1)
[2021-06-24 04:21] LABS: Bilirubin, Total 0.4 mg/dL (0.2-1.0); Total Protein 8.1 g/dL (6.4-8.2)
[2021-06-24 05:50] VITALS: BP 150/93
== END 2021-06-24 05:50 | disposition home or self-care (01) ==
LOC: EDBD → EDSEX → ER
DX: N39.0 Urinary tract infection, site not specified (principal); E07.9 Disorder of thyroid, unspecified; I50.9 Heart failure, unspecified; E11.9 Type 2 diabetes mellitus without complications; E03.9 Hypothyroidism, unspecified; Z86.73 Personal history of transient ischemic attack (TIA), and cerebral infarction without residual deficits; Z90.710 Acquired absence of both cervix and uterus; Z88.0 Allergy status to penicillin; Z88.1 Allergy status to other antibiotic agents; Z88.8 Allergy status to other drugs, medicaments and biological substances; Z88.2 Allergy status to sulfonamides
CPT/HCPCS: 36415; 74176; 80053; 83690; 84484; 85025; 93005; 96372; 99285; J0696